=== PATIENT | male | born 1975 | race Caucasian/White ===

== ENCOUNTER 2022-05-17 14:19 | Emergency (ER) | payer OTHER, SELFPAY ==
--- NOTE | ~2022-05-17 | XR_ITS ---
EXAM: XR tibia fibula LT 2V DATE: 05/17/2022 15:02 HISTORY: left lower leg pain/no trauma/pain anterior distal 1/2 of leg . COMPARISON: None available. FINDINGS: Normal mineralization. No fracture or dislocation. No lytic or blastic lesion. Joint space s are maintained. No erosion or periosteal change. Soft tissues within normal limits. IMPRESSION: No acute osseous finding in the left tibia or fibula. Reviewed, dictated and finalized at location K. [facility] [employer] ELIGIBILITY ASSISTANT
--- NOTE | 2022-05-17 14:25 | ED.EXTPRO ---
HPI - Extremity Problem General Stated complaint: Lower Lt Leg Swelling and Pain Time Seen by Provider: 05/17/22 14:47 Source: patient and RN notes reviewed Mode of arrival: ambulatory Limitations: no limitations History of Present Illness HPI Narrative: 46-year-old male presents concern for swelling of the anterior left lower leg. 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 He thinks it could be a nichole splint. He denies redness, warmth, pain with range of motion, pain with flexion or extension of the foot. He denies any open skin. He denies any exacerbating or relieving factors. He denies any chest pain or shortness of breath, fevers, aches, malaise MD Complaint: extremity swelling Related Data Home Medications Medication Instructions Recorded Confirmed No Home Medications 05/17/22 05/17/22 Allergies Allergy/AdvReac Type Severity Reaction Status Date / Time clindamycin Allergy Unknown Unknown Verified 05/17/22 14:46 No Known Allergies Allergy Unverified 01/03/13 15:46 Review of Systems Review of Systems: CONSTITUTIONAL: Denies malaise, chills, sweats, or fever. CARDIOVASCULAR: Denies chest pain, palpitations, or edema. RESPIRATORY: Denies cough or dyspnea. SKIN: Denies rash or itching, bruising, redness MUSCULOSKELETAL: Reports left lower leg swelling NEUROLOGIC: Denies numbness, weakness All systems reviewed & are unremarkable except as noted in HPI and below PMFSH Family History Family History (Updated 01/19/14 @ 07:13 by DOCTOR UNKNOWN) Father Hypertension Family history of heart disease in male family member before age 55 Mother Hypertension Other Cerebrovascular accident Family history of cardiovascular disease Social History Social History Alcohol intake: current Comments At time of signature, agree with nursing past medical, surgical, social and family history. There is no relevant family history pertinent to the presenting complaint Exam Narrative: GENERAL: Well-appearing, well-nourished, and in no acute distress. HEAD: Normocephalic, atraumatic. EYES: PERRLA, conjunctivae clear NECK: Supple. CHEST: Speaks in full sentences. No respiratory distress. HEART: Regular rate and rhythm. Normal and equal peripheral pulses. EXTREMITIES: Left lower extremity, ankle, foot, digits have normal strength and sensation, normal range of motion. Mild anterior lateral nonpitting edema above the ankle without erythema, warmth, or ecchymosis. 5/5 strength with ankle and it flexion and extension. Normal sensation with sensitivity to light touch and pain. No point tenderness. No open wounds, no skin tenting, no devitalized tissue or atrophy, no trophic changes, no obvious deformity, alignment normal, nearby joints and structures intact. Distal pulses palpable and equal bilaterally, skin warm, dry, pink. Capillary refill less than 3 seconds. SKIN: Warm, dry, no rash. NEURO: Alert and oriented x3. PSYCH: Normal mood and affect Course Course Emergency Course: Patient is aware of diagnosis, understands and agrees to treatment plan. Anticipatory guidance given. Patient agrees to follow-up as directed and is aware of reasons to seek care at the emergency department. Portions of this record may have been created with voice recognition software Level of Care: Express Care Visit Vital Signs Vital signs: Reviewed. MDM - Extremity (Nontraumatic) MDM Narrative Medical decision making narrative: Patients pain is consistent with musculoskeletal etiology. No signs of neurological or vascular compromise on exam. Compartments and tissues are soft without signs of compartment syndrome. Pain is felt appropriate for further evaluation on an outpatient basis. Critical Care Time Critical Care Time Critical Care Time: No Discharge Plan Discharge Clinical Impression: Leg swelling Patient Disposition: Home, Self-Care Condition: Stable Instructions: General Patient Instructi
[2022-05-17 14:35] VITALS: BP 128/82; PULSE 74; RESP 16; TEMP 36.7; O2SAT 100
== END 2022-05-17 15:39 | disposition home or self-care (01) ==
PROVIDERS: Emergency Provider Nurse Practitioner
DX: M79.89 Other specified soft tissue disorders (principal); M79.662 Pain in left lower leg
CPT/HCPCS: 73590; 99213; G0463